=== PATIENT | female | born 1980 | race Caucasian/White ===

== ENCOUNTER 2023-04-16 08:14 | Emergency (ER) | payer MEDICAID ==
[~2023-04-16] VITALS: Ht 157.5 cm; Wt 65.9 kg
[2023-04-16] MEDS ORDERED: ALPRAZolam 0.5mg tablet PO ONE (10:40)
[2023-04-16] MEDS ORDERED: propranolol 10mg tablet PO ONE (10:40)
[2023-04-16 12:08] VITALS: BP 135/76
== END 2023-04-16 12:09 | disposition home or self-care (01) ==
LOC: ER 08:15
DX: F41.9 Anxiety disorder, unspecified (principal); I10 Essential (primary) hypertension; Z51.81 Encounter for therapeutic drug level monitoring; F32.A Depression, unspecified; Z72.89 Other problems related to lifestyle; F41.0 Panic disorder [episodic paroxysmal anxiety]
CPT/HCPCS: 99283

== ENCOUNTER 2024-05-12 06:43 | Emergency (ER) | payer MEDICAID ==
[~2024-05-12] VITALS: Ht 157.5 cm; Wt 68.3 kg
[2024-05-12 06:53] VITALS: BP 135/100; PULSE 86; O2SAT 99
[2024-05-12] MEDS ORDERED: ketorolac tromethamine 15mg/ml inj. IM ONE (07:35)
[2024-05-12] MEDS: ketorolac trometh. 30mg/ml inj. IM ONE (07:44)
[2024-05-12] MEDS ORDERED: LIDO700A32 TD (08:50)
[2024-05-12 09:06] LABS: BILIRUBIN,URINE NEGATIVE (Neg); CLARITY,URINE CLEAR (Clear); COLOR,URINE YELLOW (Yellow); GLUCOSE, URINE NEGATIVE (Neg); KETONES,URINE NEGATIVE (Neg); LEUKOCYTE ESTERASE ,URINE NEGATIVE (Neg); NITRITES, URINE NEGATIVE (Neg); OCCULT BLOOD,URINE NEGATIVE (Neg); PROTEIN,URINE NEGATIVE (Neg); UROBILINOGEN,URINE 0.2 E.U/dL (0.2-1.0)
[2024-05-12 09:07] LABS: UA COLLECTION TYPE CLN CATCH MIDSTREAM
[2024-05-12] MEDS ORDERED: LIDO700A32 TOP (09:18)
[2024-05-12] MEDS ORDERED: IBUP-1986 PO (09:31)
[2024-05-12] MEDS: LIDOcaine 5% patch TP SCH (09:36)
[2024-05-12 09:41] VITALS: RESP 16
== END 2024-05-12 09:53 | disposition home or self-care (01) ==
LOC: ER 06:44
DX: R07.81 Pleurodynia (principal); F41.9 Anxiety disorder, unspecified; Z79.1 Long term (current) use of non-steroidal anti-inflammatories (NSAID); Z79.899 Other long term (current) drug therapy
CPT/HCPCS: 71045; 81003; 96372; 99284; J1885

== ENCOUNTER 2025-02-16 08:41 | Inpatient (IN) | payer MEDICAID, OTHER ==
[~2025-02-16] VITALS: Ht 157.5 cm; Wt 70.0 kg
[~2025-02-16 08:41] MED LIST: IBUP-1986 PO; LIDO700A32 TOP
[2025-02-16 09:06] LABS: BASOPHILS # (AUTO) 0.1 X10'3 (0-0.2); BASOPHILS % (AUTO) 0.6 % (0-1); EOSINOPHILS % (AUTO) 0 % (0-6); HEMOGLOBIN 13.7 g/dl (12.0-16.0); LYMPHOCYTES # (AUTO) 0.9 X10'3 (1.1-4.8); LYMPHOCYTES % (AUTO) 5.9 % (21-51); MEAN CORPUSCULAR HEMOGLOBIN 32.1 PG (27.0-31.0); MEAN CORPUSCULAR HGB CONC 33.5 g/dL (33.0-36.5); MEAN CORPUSCULAR VOLUME 95.8 FL (78-98); MEAN PLATELET VOLUME 8.8 FL (7.4-10.4); MONOCYTES # (AUTO) 0.8 X10'3 (0-0.9); MONOCYTES % (AUTO) 5.5 % (2-12); NEUTROPHILS # (AUTO) 12.8 X10'3 (1.8-7.7); PLATELET COUNT 486 X10'3 (140-440); RED BLOOD COUNT 4.28 X10'6 (4.20-5.60); RED CELL DISTRIBUTION WIDTH 13.6 % (11.5-14.5); WHITE BLOOD COUNT 14.5 X10'3 (4.5-11.0)
[2025-02-16] MEDS: ondansetron/PF 4mg/2ml inj IV ONE (09:12)
[2025-02-16] MEDS: morphine 4 MG/ML inj SYRINge IV ONE (09:12)
[2025-02-16 09:22] LABS: ALANINE AMINOTRANSFERASE 107 U/L (12-78); ALBUMIN 4.2 G/DL (3.4-5.0); ALBUMIN/GLOBULIN RATIO 1.2 (1.1-1.5); ALKALINE PHOSPHATASE 77 IU/L (46-116); ANION GAP 31 (8-16); ASPARTATE AMINO TRANSFERASE 52 U/L (10-37); BILIRUBIN,TOTAL 1.3 MG/DL (0.1-1.0); BLOOD UREA NITROGEN 15 MG/DL (7-18); BUN/CREATININE RATIO 11.5 (10.0-20.0); CALCIUM 8.6 MG/DL (8.5-10.1); CHLORIDE 97 MMOL/L (99-107); GLUCOSE 133 MG/DL (70-104); LIPASE 93 U/L (16-77); POTASSIUM 4.3 MMOL/L (3.5-5.1); SODIUM 139 MMOL/L (135-145); TOTAL PROTEIN 7.6 G/DL (6.4-8.2); eCRCL 45 ML/MIN; eGFR 45 ML/MIN
[2025-02-16 09:23] LABS: TOTAL CARBON DIOXIDE 10.8 MMOL/L (24-32)
--- NOTE | 2025-02-16 10:02 | ELECTROCARDIOGRAPH REPORT ---
[facility] Test Date: 2025-02-16 Test Time: 08:46:05 Pat Name: BHAVIN SUERO Department: EMERGENCY ROOM Room: ORTHO [facility] Gender: F Accounting Professional: NABOR : 1980 Requested By: ROSA BAEZA Order Number: [id number] Reading MD: Dr. Wan Cordova Measurements Intervals Ava Rate: 116 P: 84 AZ: 139 QRS: 85 QRSD: 94 T: 27 QT: 323 QTc: 449 Interpretive Statements Sinus tachycardia Ventricular premature complex Aberrant complex Right atrial enlargement Electronically Signed On 02-17-2025 9:27:[address] Wan Cordova Please click the below link to view image of tracing.
--- NOTE | 2025-02-16 10:31 | Physician Documentation ---
History of Present Illness General Chief Complaint: Abdominal Pain w/vomiting Stated Complaint: ABD PAIN/WEAKNESS Time Seen by MD: 09:47 Mode of Arrival: EMS History of Present Illness Initial Comments The patient is a 44-year-old female with a history of binge drinking who was drinking heavily three days ago and two days ago. Beginning yesterday she developed epigastric pain, nausea and vomiting. She has not been blood. No diarrhea. Medication Reconciliation Allergies: Coded Allergies: No Known Allergies (Unverified , 04/16/23) Scheduled Ibuprofen (Ibuprofen), 1 TAB PO Q8H Lidocaine (Lidoderm), 1 PATCH TOP BID Past Medical History Past Medical History: Anxiety, Depression Past Surgical History: no surgical history Alcohol Use: Heavy Drug Use: none Lives In: Home Review of Systems ROS Constitutional: Denies chills, fatigue, fever, weight gain or weight loss. HEENT: Denies hearing loss, sinus pressure or visual changes. Respiratory: Denies cough, shortness of breath or wheezing. Cardiovascular: Denies chest pain, pain while walking (claudication), edema or palpitations. Gastrointestinal: Epigastric pain, nausea Genitourinary: Denies painful urination (dysuria), excessive amount of urine (polyuria) or urinary frequency. Metabolic/Endocrine: Denies cold intolerance, heat intolerance, excessive thirst (polydipsia) or excessive hunger (polyphagia). Neurological: Denies dizziness, extremity numbness, extremity weakness, headaches, seizures or tremors. Psychiatric: Denies anxiety or depression. Integumentary: Denies breast discharge, breast lump, hives, mole change(s), rash or skin lesion. Musculoskeletal: Denies back pain, joint pain, joint swelling or neck pain. Hematologic: Denies easily bleeding, easily bruises, lymphedema or issues with blood clots. Immunologic: Denies food allergies or seasonal allergies. Physical Exam Physical Exam Vital Signs: Temperature: 98.0, Heart Rate: 121, Respiratory Rate: 14, BP: 123/87, Pulse Oximetry: 100, Weight: 70.000 Oxygen Flow Rate: 0 Physical Exam Physical Exam Vitals and nursing note reviewed. Constitutional: General: Patient is awake, alert, oriented x 4 in no acute distress and well appearing. Speech is clear and lucid. Appearance: Normal appearance. Patient is not ill-appearing, toxic-appearing or diaphoretic. HENT: Head: Normocephalic and atraumatic. Mouth/Throat: Mouth: Mucous membranes are moist. Pharynx: Oropharynx is clear. Eyes: General: No scleral icterus. Extraocular Movements: Extraocular movements intact. Pupils: Pupils are equal, round, and reactive to light. Cardiovascular: Rate and Rhythm: Normal rate and regular rhythm. Heart sounds: No murmur heard. Pulmonary: Effort: No respiratory distress. Breath sounds: No wheezing, rhonchi or rales. Abdominal: General: There is no distension. Palpations: There is no fluid wave, hepatomegaly or mass. Tenderness: Epigastric tenderness without rebound or guarding. Musculoskeletal: General: No swelling or deformity. Skin: Coloration: Skin is not jaundiced. Findings: No erythema or rash. Neurological: Mental Status: Patient is alert. Progress Results/Orders Results/Orders Orders - ROSA BAEZA MD ABG (02/16/25 10:30) Dextrose 5%-Normal Saline (Dextrose 5%-N (02/16/25 11:20) Page Hospitalist (02/16/25 11:22) Completed Orders - ROSA BAEZA MD Hcg, Ur Ql (02/16/25 08:50) Cbc/Diff (02/16/25 08:50) BMP (02/16/25 08:50) Lipase (02/16/25 08:50) CMP (02/16/25 08:50) Electrocardiogram (02/16/25 08:50) Pantoprazole 40mg Iv (Protonix 40mg Iv) (02/16/25 10:23) Ringers Solution, Lacted (Lactated Ringe (02/16/25 10:25) Cbc/Diff (02/16/25 10:25) Bmp Er (02/16/25 10:25) MG (02/16/25 10:25) Ethanol (02/16/25 10:28) Ua W/Microscopic, Cult If Ind (02/16/25 10:45) Acetone, Serum (02/16/25 11:11) Thiamine Inj. (Thiamine Inj.) (02/16/25 11:15) Medications Received in ER Medications (Trade) Dose Ordered Sig/Fatou Route PRN Reason Start Time Stop Time Status Last Admin Dose Admin (Zofran 4mg/2ml vial) 4 mg ONCE ONCE IV 02/16/25 09:05 02/16/25 09:06 DC 02/16/25 09:12 4 MG (morphine inj.) 4 mg ONCE ONCE IV 02/16/25 09:05 02/16/25 09:06 DC 02/16/25 09:12 4 MG (Protonix 40mg IV) 40 mg ONCE STAT IV 02/16/25 10:23 02/16/25 10:27 DC 02/16/25 10:39 40 MG Lactated Ringer's 1,000 ml @ 1,000 mls/hr ONCE ONCE IV 02/16/25 10:25 02/16/25 11:24 DC 02/16/25 10:39 1,000 MLS/HR (thiamine inj.) 500 mg ONCE ONCE IV 02/16/25 11:15 02/16/25 11:25 DC 02/16/25 12:04 500 MG Dextrose/Sodium Chloride 1,000 ml @ 100 mls/hr Q10H IV 02/16/25 11:20 02/16/25 12:05 100 MLS/HR Vital Signs 02/16/25 02/16/25 02/16/25 02/16/25 08:43 08:52 09:12 09:17 Temp 98.0 98.0 Pulse 117 122 Resp 21 18 20 B/P (MAP) 139/108 128/102 (111) Pulse Ox 100 100 O2 Flow Rate 0 0 02/16/25 02/16/25 02/16/25 10:15 10:45 11:45 Temp 98.0 Pulse 121 109 109 Resp 14 21 18 B/P (MAP) 123/87 (99) 127/89 (102) 129/79 (96) Pulse Ox 100 99 95 O2 Flow Rate 0 0 0 Laboratory Tests Test 02/16/25 08:50 02/16/25 10:35 02/16/25 10:45 02/16/25 11:20 White Blood Count 14.5 H 16.9 H Red Blood Count 4.28 4.52 Hemoglobin 13.7 14.1 Hematocrit 41.0 42.9 Mean Corpuscular Volume 95.8 94.9 Mean Corpuscular Hemoglobin 32.1 H 31.3 H Mean Corpuscular Hemoglobin Concent 33.5 32.9 L Red Cell Distribution Width 13.6 13.5 Platelet Count 486 H 532 H Mean Platelet Volume 8.8 8.7 Neutrophils (%) (Auto) 88.0 H 87.0 H Lymphocytes (%) (Auto) 5.9 L 5.8 L Monocytes (%) (Auto) 5.5 6.6 Eosinophils (%) (Auto) 0 0 Basophils (%) (Auto) 0.6 0.6 Neutrophils # (Auto) 12.8 H 14.7 H Lymphocytes # (Auto) 0.9 L 1.0 L Monocytes # (Auto) 0.8 1.1 H Eosinophils # (Auto) 0.0 0.0 Basophils # (Auto) 0.1 0.1 CBC Comment Sodium Level 139 139 Potassium Level 4.3 4.7 Chloride Level 97 L 99 Carbon Dioxide Level 10.8 *L 14.1 *L Anion Gap 31 H 26 H Blood Urea Nitrogen 15 16 Creatinine 1.30 H 1.14 H Estimated GFR/1.73 m2 45 52 BUN/Creatinine Ratio 11.5 14.0 Glucose Level 133 H 104 Calcium Level 8.6 8.4 L Total Bilirubin 1.3 H Aspartate Amino Transf (AST/SGOT) 52 H Alanine Aminotransferase (ALT/SGPT) 107 H Alkaline Phosphatase 77 Total Protein 7.6 Albumin 4.2 4.3 Globulin 3.4 Albumin/Globulin Ratio 1.2 Lipase 93 H Chemistry Comments Magnesium Level 2.0 Ethyl Alcohol Level < 10 Urine Specimen Description Cln catch midstream Urine Color Yellow Urine Clarity Slightly cloudy Urine pH 6.0 Urine Specific [place] >=1.030 Urine Protein 100 H Urine Glucose (UA) Negative Urine Ketones >=80 Urine Occult Blood Trace-intact Urine Nitrite Negative Urine Bilirubin Small Urine Urobilinogen 0.2 Urine Leukocyte Esterase Negative Urine RBC None seen Urine WBC 10-20 H Urine Squamous Epithelial Cells Many Urine Renal Cells Few Urine Bacteria 1+ Urine Cellular Casts 10-20 Urine Hyaline Casts 5-10 Urine Fine Granular Casts 3-5 Urine Coarse Granular Casts 10-30 Urine Mucus Few Urine Culture Indicated Rejected for culture Volume Urine Centrifuged 10 ml Urine HCG, Qualitative Negative Urine Comment Blood Gas Specimen Type Arterial Blood Gas Puncture Site Rb O2 Saturation 96.7 Arterial Blood pH (Temp corrected) 7.295 L Arterial Blood pCO2 (Temp correct) 24.7 L Arterial Blood pO2 (Temp corrected) 100.1 Arterial Blood PO2/FiO2 Ratio 4.77 Arterial Blood HCO3 11.7 L Arterial Blood Base Excess -12.9 L Arterial Blood Oxyhemoglobin 96.3 Arterial Blood Carboxyhemoglobin 0.3 L Arterial Blood Methemoglobin 0.1 Arterial Blood Deoxyhemoglobin 3.3 Todd Test Positive Blood Gas Hemoglobin 12.9 Blood Gas Temperature 37.0 Blood Gas Modality Ra FiO2 21.0 Test 02/16/25 11:28 Acetone Level Moderate Medical Decision Making Findings This 44-year-old female with a history of binge drinking was drinking heavily two and three days ago and subsequently experienced epigastric discomfort, nausea and vomiting. She also feels somewhat anxious. She has an increased anion gap and ketonuria along with acidosis (venous pH 7.295). This patient has alcohol ketoacidosis. I have volume repleted her and I am going to start D5 NS. She will require admission. Departure Disposition: ADMITTED INPATIENT Admitted to Inpatient Unit: to hospitalist Admission Level of Care: Med/Surg with Tele Impression: Primary Impression: Alcoholic ketoacidosis Condition: Stable Referrals: NO PRIMARY CARE PROVIDER (PCP) Signature Scribe Signature: . Attestation: . ROSA BAEZA MD Feb 16, 2025 10:30
[2025-02-16] MEDS: pantoprazole 40 MG vial IV STA (10:39)
[2025-02-16] MEDS: ringers solution, lacted 1,000 ML IV ONE (10:39)
[2025-02-16 10:45] LABS: BASOPHILS # (AUTO) 0.1 X10'3 (0-0.2); BASOPHILS % (AUTO) 0.6 % (0-1); EOSINOPHILS % (AUTO) 0 % (0-6); HEMATOCRIT 42.9 % (35.0-45.0); HEMOGLOBIN 14.1 g/dl (12.0-16.0); LYMPHOCYTES % (AUTO) 5.8 % (21-51); MEAN CORPUSCULAR HEMOGLOBIN 31.3 PG (27.0-31.0); MEAN CORPUSCULAR HGB CONC 32.9 g/dL (33.0-36.5); MEAN CORPUSCULAR VOLUME 94.9 FL (78-98); MEAN PLATELET VOLUME 8.7 FL (7.4-10.4); MONOCYTES # (AUTO) 1.1 X10'3 (0-0.9); MONOCYTES % (AUTO) 6.6 % (2-12); NEUTROPHILS # (AUTO) 14.7 X10'3 (1.8-7.7); PLATELET COUNT 532 X10'3 (140-440); RED BLOOD COUNT 4.52 X10'6 (4.20-5.60); RED CELL DISTRIBUTION WIDTH 13.5 % (11.5-14.5); WHITE BLOOD COUNT 16.9 X10'3 (4.5-11.0)
[2025-02-16 10:57] LABS: ALBUMIN 4.3 G/DL (3.4-5.0); ANION GAP 26 (8-16); BLOOD UREA NITROGEN 16 MG/DL (7-18); CALCIUM 8.4 MG/DL (8.5-10.1); CHLORIDE 99 MMOL/L (99-107); CREATININE 1.14 MG/DL (0.40-0.90); ETHANOL < 10 MG/DL (<10); GLUCOSE 104 MG/DL (70-104); POTASSIUM 4.7 MMOL/L (3.5-5.1); SODIUM 139 MMOL/L (135-145); eCRCL 51 ML/MIN; eGFR 52 ML/MIN
[2025-02-16 10:58] LABS: TOTAL CARBON DIOXIDE 14.1 MMOL/L (24-32)
[2025-02-16 11:03] LABS: BILIRUBIN,URINE SMALL (Neg); CLARITY,URINE SLIGHTLY CLOUDY (Clear); COLOR,URINE YELLOW (Yellow); GLUCOSE, URINE NEGATIVE (Neg); KETONES,URINE >=80 mg/dl (Neg); LEUKOCYTE ESTERASE ,URINE NEGATIVE (Neg); NITRITES, URINE NEGATIVE (Neg); OCCULT BLOOD,URINE TRACE-INTACT (Neg); PROTEIN,URINE 100 mg/dl (Neg); UROBILINOGEN,URINE 0.2 E.U/dL (0.2-1.0)
[2025-02-16 11:04] LABS: UA COLLECTION TYPE CLN CATCH MIDSTREAM; URINE HCG NEGATIVE (NEG)
[2025-02-16 11:22] LABS: BACTERIA,URINE 1+ /HPF (Neg); RBC,URINE NONE SEEN /HPF (0-2)
[2025-02-16 11:23] LABS: SQUAMOUS EPITHELIAL CELL,UR MANY /LPF (FEW)
[2025-02-16 11:24] LABS: ABG BASE EXCESS -12.9 mmol/L (-2.0-3.0); ABG HCO3 11.7 mmol/L (21.0-28.0); ABG OXYGEN SATURATION 96.7 % (94.0-98.0); ABG PCO2 (T) 24.7 mmHg (32.0-45.0); ABG PH (T) 7.295 (7.350-7.450); ABG PO2 (T) 100.1 mmHg (83.0-108.0); ALLEN'S TEST POSITIVE; FCOHb 0.3 % (0.5-1.5); FHHb 3.3 % (0.0-5.0); FMetHb 0.1 % (0.0-1.5); FO2Hb 96.3 % (94.0-98.0); MODE RA; TOTAL HEMOGLOBIN 12.9 G/dl (12.0-16.0)
[2025-02-16 11:25] LABS: MUCUS STRANDS FEW /LPF (Neg)
[2025-02-16 11:26] LABS: RENAL CELLS, URINE FEW /HPF
[2025-02-16] MEDS: thiamine 100mg/ml 2ml inj. IV ONE (12:04)
[2025-02-16] MEDS: dextrose 5%-normal saline 1,000 ML IV SCH (12:05)
[2025-02-16 12:26] LABS: ACETONE MODERATE (NEGATIVE)
[2025-02-16] MEDS ORDERED: LORazepam 2 mg/ml vial IV PRN (13:45)
[2025-02-16] MEDS ORDERED: haloperidol 5mg tablet PO PRN (13:45)
[2025-02-16] MEDS ORDERED: haloperidol lactate 5mg/ml inj IM PRN (13:45)
[2025-02-16] MEDS ORDERED: potassium Cl 20 mEq SR tablet PO PRN (13:50)
[2025-02-16] MEDS ORDERED: magnesium Cl slow-release 64mg tablet PO PRN (13:50)
[2025-02-16] MEDS ORDERED: acetaminophen 325mg tablet PO PRN ×2 (13:50)
[2025-02-16] MEDS ORDERED: morphine 2 MG/ML inj. syringe IV PRN (13:50)
[2025-02-16] MEDS ORDERED: magnesium sulf-water 2g/50mL 50 ML IV PRN (13:50)
[2025-02-16] MEDS ORDERED: magnesium sulf-water 4G/100mL 100 ML IV PRN (13:50)
[2025-02-16] MEDS ORDERED: ondansetron/PF 4mg/2ml inj IV PRN (13:50)
[2025-02-16] MEDS ORDERED: potassium Cl 40MEQ/1/2NS 520ml 520 ML IV PRN (13:50)
[2025-02-16] MEDS: atenolol 50mg tablet PO SCH (14:49)
[2025-02-16] MEDS: sodium bicarbonate (8.4%) inj. 50 MEQ in dextrose 5%-water 1,000 ML IV SCH (14:50)
--- NOTE | 2025-02-16 15:33 | HISTORY AND PHYSICAL ---
History & Physical Providers to CC ~ History of Present Illness Reason for Admit\Complaint: Vomiting and not feeling good since two days History of Present Illness The patient is a 44-year-old female with a history of binge drinking who was drinking heavily three days ago and two days ago. Patient was seen today in ER in presence of her mother. Beginning yesterday she developed epigastric pain, nausea and vomiting. Patient denied any abdominal pain to me in visit. Further workup done in ER which was abnormal WBC 16.9, bicarbonate 14.1 signs of acute kidney failure elevated lipase and liver enzymes. Patient off and on get cramps over her legs Patient denied any other concerns. No other associated symptoms Allergies: Coded Allergies: No Known Allergies (Unverified , 04/16/23) Home Medications Home Medications Active Ibuprofen 800 Mg Tablet 1 Tab PO Q8H 10 Days Lidoderm (Lidocaine) 5 % Adh..patch 1 Patch TOP BID 5 Days may wear up to 12 hours Past Medical History Past Medical History Anxiety and depression Past Surgical History Surgical History Comment no surgical history Past Social History Social History Comment Patient lives by herself , some online business. She admitted that she has binge drinking habit denied use of any tobacco use cannabis off and on Exam Vitals: Vital Signs Date Time Temp Pulse Resp B/P (MAP) Pulse Ox O2 Delivery O2 Flow Rate FiO2 02/16/25 14:49 114 02/16/25 13:45 18 124/82 (96) 96 0 02/16/25 10:45 98.0 General: General-patient not in any acute distress, alert awake ill-appearing, age- appropriate HEENT-atraumatic normocephalic, neck supple without elevated JVD, no thyromegaly or carotid bruit. No lymphadenopathy bilaterally. Eyes-no icterus or pallor seen in eyes Chest-clear to auscultation bilaterally, breathing nonlabored no tachypnea, no wheezing, no crepitation, no crackles. Heart-S1-S2 normal, regular heart rate no murmur Abdomen bowel sounds positive on auscultation, soft nondistended nontender no guarding, no rigidity Skin no active skin rash Neurology-grossly intact, nonfocal alert awake , mildly lethargic during conversation Extremity- no pedal edema able to move all 4 extremities Psychiatry - patient is not confused or agitated cooperated during physical examination Diagnostic Data Last Recorded Lab Results: 02/16/25 1035 02/16/25 1035 Advance Care Planning Advanced Care plannin - 30 Minutes Additional Plan The patient is a 44-year-old female with a history of binge drinking who was drinking heavily three days ago Further workup done in ER which was abnormal WBC 16.9, bicarbonate 14.1 signs of acute kidney failure elevated lipase and liver enzymes. Patient is admitted for alcohol intoxication, alcoholic ketoacidosis, acute kidney injury, transaminitis, possible acute pancreatitis. Detailed counseling done regarding risk and consequences of alcohol abuse in presence of her mother. We will do the physical therapy evaluation. Alcohol withdrawal protocol ordered. We will continue to monitor patient's vitals and labs. Manager Performance consult order for alcohol abuse. As per patient she does not have any medical issues. We will continue to followed home renal function and liver enzymes. Code status discussed with the patient patient wishes to stay full code. Patient's current condition is guarded . I will continue to follow patient in a.m. Date of Service: Feb 16, 2025 Billing Provider: UNA HUNTER MD Common Visit Codes: [id number] INP/OBS CARE (HIGH) Secondary Visit Codes: [id number] CARE PLAN 30 MINUTES UNA HUNTER MD Feb 16, 2025 15:33
[2025-02-16 16:00] VITALS: BP 135/86; PULSE 88; RESP 14; TEMP 98.4; O2SAT 98
[2025-02-16 17:00] VITALS: RESP 14
[2025-02-16 17:46] VITALS: RESP 14
[2025-02-16 18:00] VITALS: BP 102/68; PULSE 88; RESP 14; TEMP 98.7; O2SAT 98
[2025-02-16] MEDS ORDERED: NO HOME MEDS (18:51)
[2025-02-16 19:13] VITALS: RESP 16; O2SAT 98
[2025-02-16] MEDS: LORazepam 1 MG tablet PO PRN (20:24)
[2025-02-16] MEDS: thiamine 100mg/ml 2ml inj. IV SCH (20:25)
[2025-02-16] MEDS: heparin, porcine 5000 units/ml vial SQ SCH (20:25)
[2025-02-16 22:00] VITALS: BP 91/58; PULSE 73; RESP 16; TEMP 98.7; O2SAT 100
[2025-02-17 06:00] VITALS: BP 87/60; PULSE 77; RESP 16; TEMP 97.9; O2SAT 99
[2025-02-17] MEDS: folic acid 1mg/0.2ml inj IV SCH (07:01)
[2025-02-17] MEDS: multivitamins, therapeutics tablet PO SCH (07:04)
[2025-02-17 07:29] LABS: ALANINE AMINOTRANSFERASE 75 U/L (12-78); ALBUMIN 3.3 G/DL (3.4-5.0); ALBUMIN/GLOBULIN RATIO 1.2 (1.1-1.5); ALKALINE PHOSPHATASE 61 IU/L (46-116); ANION GAP 5 (8-16); ASPARTATE AMINO TRANSFERASE 41 U/L (10-37); BILIRUBIN,TOTAL 1.6 MG/DL (0.1-1.0); BLOOD UREA NITROGEN 8 MG/DL (7-18); BUN/CREATININE RATIO 9.8 (10.0-20.0); CALCIUM 8.4 MG/DL (8.5-10.1); CHLORIDE 102 MMOL/L (99-107); CREATININE 0.82 MG/DL (0.40-0.90); GLUCOSE 121 MG/DL (70-104); LIPASE 82 U/L (16-77); MAGNESIUM 1.7 MG/DL (1.5-2.4); PHOSPHORUS 1.5 MG/DL (2.3-4.5); POTASSIUM 3.3 MMOL/L (3.5-5.1); SODIUM 137 MMOL/L (135-145); TOTAL CARBON DIOXIDE 30.3 MMOL/L (24-32); TOTAL PROTEIN 6.1 G/DL (6.4-8.2); eCRCL 71 ML/MIN; eGFR 76 ML/MIN
[2025-02-17] MEDS: potassium Cl 20 mEq SR tablet PO PRN (07:52)
[2025-02-17 08:00] VITALS: RESP 16
[2025-02-17] MEDS: nicotine 14mg patch - 24hr TD SCH (08:00)
[2025-02-17] MEDS: normal saline 1000ml 1,000 ML IV SCH (09:52)
[2025-02-17 10:00] VITALS: BP 101/68; PULSE 80; RESP 18; TEMP 98.9; O2SAT 95
[2025-02-17 14:16] LABS: BASOPHILS % (AUTO) 0.4 % (0-1); EOSINOPHILS # (AUTO) 0.1 X10'3 (0-0.9); EOSINOPHILS % (AUTO) 0.9 % (0-6); HEMATOCRIT 33.6 % (35.0-45.0); HEMOGLOBIN 11.5 g/dl (12.0-16.0); LYMPHOCYTES # (AUTO) 1.9 X10'3 (1.1-4.8); LYMPHOCYTES % (AUTO) 23.1 % (21-51); MEAN CORPUSCULAR HEMOGLOBIN 32.4 PG (27.0-31.0); MEAN CORPUSCULAR HGB CONC 34.1 g/dL (33.0-36.5); MEAN CORPUSCULAR VOLUME 94.8 FL (78-98); MEAN PLATELET VOLUME 8.6 FL (7.4-10.4); MONOCYTES # (AUTO) 0.7 X10'3 (0-0.9); MONOCYTES % (AUTO) 8.5 % (2-12); NEUTROPHILS # (AUTO) 5.4 X10'3 (1.8-7.7); NEUTROPHILS % (AUTO) 67.1 % (42-75); PLATELET COUNT 375 X10'3 (140-440); RED BLOOD COUNT 3.55 X10'6 (4.20-5.60); RED CELL DISTRIBUTION WIDTH 13.3 % (11.5-14.5); WHITE BLOOD COUNT 8.1 X10'3 (4.5-11.0)
[2025-02-17 18:00] VITALS: BP 103/72; PULSE 91; RESP 17; TEMP 98.3; O2SAT 96
--- NOTE | 2025-02-17 18:57 | PROGRESS NOTE ---
Daily Progress Note Providers to CC ~ Antibiotic Timeout Antibiotic Ordered?: No Subjective Patient was seen in presence of her mother. Patient is feeling better today Objective Vital Signs Date Time Temp Pulse Resp B/P (MAP) Pulse Ox O2 Delivery O2 Flow Rate FiO2 02/17/25 10:00 98.9 80 18 101/68 (79) 95 Room Air 02/16/25 13:45 0 Result Diagram: 02/17/25 1352 02/17/25 0648 General-patient not in any acute distress, alert awake ill-appearing, age- appropriate HEENT-atraumatic normocephalic, neck supple without elevated JVD, no thyromegaly or carotid bruit. No lymphadenopathy bilaterally. Eyes-no icterus or pallor seen in eyes Chest-clear to auscultation bilaterally, breathing nonlabored no tachypnea, no wheezing, no crepitation, no crackles. Heart-S1-S2 normal, regular heart rate no murmur Abdomen bowel sounds positive on auscultation, soft nondistended nontender no guarding, no rigidity Skin no active skin rash Neurology-grossly intact, nonfocal alert awake , mildly lethargic during conversation Extremity- no pedal edema able to move all 4 extremities Psychiatry - patient is not confused or agitated cooperated during physical examination Problem\Assessment\Plan The patient is a 44-year-old female with a history of binge drinking who was drinking heavily three days ago . Patient is admitted for alcohol intoxication, alcoholic ketoacidosis, acute kidney injury, transaminitis, possible acute pancreatitis. # alcohol intoxication- Detailed counseling done regarding risk and consequences of alcohol abuse in presence of her mother. We will do the physical therapy evaluation. Alcohol withdrawal protocol ordered. # alcoholic ketoacidosis resolved. Bicarbonate drip today and started on normal saline # possible acute pancreatitis- continue on IV fluids. # acute kidney injury, transaminitis- improved , continue on IV fluids. # hypokalemia we will do the replacement of potassium as per protocol # Code status discussed with the patient patient wishes to stay full code. Patient's current condition is guarded . I will continue to follow patient in a.m. Date of Service: Feb 17, 2025 Billing Provider: UNA HUNTER MD Common Visit Codes: [id number] INP/OBS CARE(HIGH) UNA HUNTER MD Feb 17, 2025 18:57
[2025-02-17] MEDS: HYDROcodone/acetaminophen 5mg/325mg tablet PO PRN (19:54)
[2025-02-17 22:00] VITALS: BP 96/62; PULSE 95; RESP 18; TEMP 97.4; O2SAT 96
[2025-02-18 06:03] LABS: BASOPHILS % (AUTO) 0.6 % (0-1); EOSINOPHILS # (AUTO) 0.1 X10'3 (0-0.9); EOSINOPHILS % (AUTO) 1.9 % (0-6); HEMATOCRIT 31.7 % (35.0-45.0); HEMOGLOBIN 10.7 g/dl (12.0-16.0); LYMPHOCYTES # (AUTO) 3.1 X10'3 (1.1-4.8); LYMPHOCYTES % (AUTO) 47.6 % (21-51); MEAN CORPUSCULAR HEMOGLOBIN 32.3 PG (27.0-31.0); MEAN CORPUSCULAR HGB CONC 33.9 g/dL (33.0-36.5); MEAN CORPUSCULAR VOLUME 95.5 FL (78-98); MEAN PLATELET VOLUME 8.7 FL (7.4-10.4); MONOCYTES # (AUTO) 0.5 X10'3 (0-0.9); MONOCYTES % (AUTO) 7.7 % (2-12); NEUTROPHILS # (AUTO) 2.8 X10'3 (1.8-7.7); NEUTROPHILS % (AUTO) 42.2 % (42-75); PLATELET COUNT 313 X10'3 (140-440); RED BLOOD COUNT 3.32 X10'6 (4.20-5.60); RED CELL DISTRIBUTION WIDTH 12.9 % (11.5-14.5); WHITE BLOOD COUNT 6.6 X10'3 (4.5-11.0)
[2025-02-18 06:16] LABS: ALANINE AMINOTRANSFERASE 94 U/L (12-78); ALBUMIN 2.7 G/DL (3.4-5.0); ALBUMIN/GLOBULIN RATIO 1.1 (1.1-1.5); ALKALINE PHOSPHATASE 50 IU/L (46-116); ANION GAP 5 (8-16); ASPARTATE AMINO TRANSFERASE 61 U/L (10-37); BILIRUBIN,TOTAL 0.4 MG/DL (0.1-1.0); BLOOD UREA NITROGEN 7 MG/DL (7-18); BUN/CREATININE RATIO 11.7 (10.0-20.0); CALCIUM 8.1 MG/DL (8.5-10.1); CHLORIDE 107 MMOL/L (99-107); GLUCOSE 96 MG/DL (70-104); MAGNESIUM 1.5 MG/DL (1.5-2.4); PHOSPHORUS 1.5 MG/DL (2.3-4.5); POTASSIUM 3.5 MMOL/L (3.5-5.1); SODIUM 141 MMOL/L (135-145); TOTAL CARBON DIOXIDE 29.5 MMOL/L (24-32); TOTAL PROTEIN 5.1 G/DL (6.4-8.2); eCRCL 97 ML/MIN; eGFR > 90 ML/MIN
[2025-02-18 06:44] VITALS: BP 107/67; PULSE 84; RESP 16; TEMP 97.7; O2SAT 98
[2025-02-18 08:00] VITALS: RESP 20; O2SAT 97
[2025-02-18 09:06] LABS: LIPASE 77 U/L (16-77)
[2025-02-18 10:00] VITALS: BP 101/67; PULSE 80; RESP 20; TEMP 98.2; O2SAT 97
[2025-02-18] MEDS ORDERED: NALT50TA5 PO (10:20)
[2025-02-18] MEDS ORDERED: PANT40TA54 PO (10:20)
[2025-02-18] MEDS ORDERED: thiamine tablet PO (10:20)
[2025-02-18] MEDS ORDERED: FOLI1TAB27 PO (10:20)
[2025-02-18] MEDS ORDERED: MULT-25 PO (10:20)
--- NOTE | 2025-02-18 18:07 | DISCHARGE SUMMARY ---
Discharge Summary Providers to CC ~ Discharge Summary Admission Diagnosis: alcoholic ketoacodosis , alcohol abuse Hospital Course DATE OF ADMISSION: February 16 2025 DATE OF DISCHARGE:February 18 2025 CBC testing done on February 18, 2025 WBC 6.6 hemoglobin 10.7 hematocrit 31.7. Serum chemistry done on February 18, 2025 sodium 141 potassium 3.5 creatinine 0.60 GFR greater than 90 total bilirubin 0.4 AST 61 ALT 94 lipase 74 Discharge Diagnosis\Comment: # alcohol intoxication # alcoholic ketoacidosis resolved # possible acute pancreatitis # acute kidney injury-resolved # transaminitis secondary to alcohol abuse # hypokalemia , resolved Operations\Procedures: none Consultants: none Complications: none Condition on DC: Stable New Medications: Naltrexone Hcl (Naltrexone Hcl) 50 Mg Tablet 1 TAB PO DAILY for 30 Days, #30 TAB 0 Refills Pantoprazole Sodium (Pantoprazole Sodium) 40 Mg Tablet.dr 40 MG PO BKF for 30 Days, #30 TAB.SR Folic Acid* (Folic Acid*) Y Tab 1 MG PO DAILY for 30 Days, #30 TAB Multivitamin with Folic Acid (Thera Tablet) 400 Mcg Tablet 1 EACH PO Q24H for 30 Days, #30 TAB [thiamine tablet] () 100 MG TABLET 100 MG PO DAILY for 30 Days, #30 Discontinued Medications: Home Med List (No Home Medications) Each Discharge Summary: The patient is a 44-year-old female with a history of binge drinking who was drinking heavily three days ago . Patient is admitted for alcohol intoxication, alcoholic ketoacidosis, acute kidney injury, transaminitis, possible acute pancreatitis. # alcohol intoxication- Detailed counseling done regarding risk and consequences of alcohol abuse in presence of her mother. We will do the physical therapy evaluation. Alcohol withdrawal protocol ordered. # alcoholic ketoacidosis resolved. Bicarbonate drip today and started on normal saline # possible acute pancreatitis- continued on IV fluids. Lipase was normal today # acute kidney injury, transaminitis- improved , continue on IV fluids. # hypokalemia , resolved we did replacement of potassium as per protocol Patient's clinical condition improved. She has been afebrile and getting discharged home in stable condition. Her mother and father was present at bedside when I evaluated her. Patient is seen and examined on the day of discharge discharge instructions provided to the patient. All questions and concerns answered to the best of my professional medical knowledge. Patient is able to ambulate and cleared by Physical therapy team. Patient needs follow-up with primary care physician in one week and repeat CMP with PCP Detailed counseling done regarding risk and consequences of alcohol abuse in presence of her mother. Strongly recommended to join alcohol anonymous program for alcohol cessation. General-patient not in any acute distress, alert awake , chronic ill-appearing, age-appropriate HEENT-atraumatic normocephalic, neck supple without elevated JVD, no thyromegaly or carotid bruit. No lymphadenopathy bilaterally. Eyes-no icterus or pallor seen in eyes Chest-clear to auscultation bilaterally, breathing nonlabored no tachypnea, no wheezing, no crepitation, no crackles. Heart-S1-S2 normal, regular heart rate no murmur Abdomen bowel sounds positive on auscultation, soft nondistended nontender no guarding, no rigidity Skin no active skin rash Neurology-grossly intact, nonfocal alert awake , Extremity- no pedal edema able to move all 4 extremities Psychiatry - patient is not confused or agitated cooperated during physical e xamination *Problems/Diagnosis: (1) Alcoholic ketoacidosis Status: Acute Total Time Spent on D/C: > 30 Minutes Date of Service: Feb 18, 2025 Billing Provider: UNA HUNTER MD Common Visit Codes: 66828-MRY/OBS DISCH DAY >30min UNA HUNTER MD Feb 18, 2025 18:07
[2025-02-20] MEDS ORDERED: thiamine 100mg tablet PO SCH (08:00)
[2025-02-21] MEDS ORDERED: folic acid 1mg tablet PO SCH (08:00)
== END 2025-02-18 14:30 | disposition home or self-care (01) | DRG 282 ==
LOC: ER 08:42 → ED HOLD 13:29 → ORTHO 4S 16:58
PROVIDERS: ADMIT Internal Medicine; ATTEND Internal Medicine
DX: K85.90 Acute pancreatitis without necrosis or infection, unspecified (principal); N17.9 Acute kidney failure, unspecified; E87.29 Other acidosis; F41.9 Anxiety disorder, unspecified; F32.A Depression, unspecified; F10.129 Alcohol abuse with intoxication, unspecified; R74.01 Elevation of levels of liver transaminase levels; E87.6 Hypokalemia
CPT/HCPCS: 36415; 36600; 80048; 80053; 80320; 81001; 81025; 82009; 82803; 83690; 83735; 84100; 85018; 85025; 87081; 93005; 96361; 96374; 96375; 97110; 97116; 97161; 99285; G0378; J1644; J2270; J2405; J2470; J3411; J3490; J7030; J7042; J7070; J7120

== ENCOUNTER 2025-10-17 08:44 | Emergency (ER) | payer MEDICAID ==
[~2025-10-17] VITALS: Ht 157.5 cm; Wt 75.0 kg
[~2025-10-17 08:44] MED LIST changes: +FOLI1TAB27 PO; -IBUP-1986 PO; -LIDO700A32 TOP; +MULT-25 PO; +NALT50TA5 PO; +PANT40TA54 PO; +thiamine tablet PO
[2025-10-17] MEDS ORDERED: SULF1TAB49 PO (11:25)
--- NOTE | 2025-10-17 11:26 | Physician Documentation ---
History of Present Illness ~ Chief Complaint: Abscess Stated Complaint: BOIL UNDER LEFT BUTTOCK Time Seen by MD: 10:50 OK to notify your PCP?: Yes Source: patient Mode of Arrival: POV Exam Limitations: no limitations HPI This is a 45-year-old female who comes in complaining of the tender firm area that is she believes it is a boil in the left upper inner thigh, lower buttock area. She has had this for the past few days. She states that is she has been applying dressings in his it has been draining purulence. She denies fever or chills. She denies some significant pain Tetanus Within 5 Years: No Medication Reconciliation Allergies: Coded Allergies: No Known Allergies (Unverified , 04/16/23) Scheduled Folic Acid* (Folic Acid*), 1 MG PO DAILY Multivitamin with Folic Acid (Thera Tablet), 1 EACH PO Q24H Naltrexone Hcl (Naltrexone Hcl), 1 TAB PO DAILY Pantoprazole Sodium (Pantoprazole Sodium), 40 MG PO BKF Sulfamethoxazole/Trimethoprim (Bactrim Ds Tablet), 1 TAB PO Q12H [thiamine tablet], 100 MG PO DAILY Past Medical History Past Medical History: Anxiety, Depression Past Surgical History: no surgical history Alcohol Use: Heavy Drug Use: none Lives In: Home Physical Exam Vital Signs: Temperature: 97.6, Source: Temporal, Heart Rate: 92, Respiratory Rate: 17, BP: 139/90, Pulse Oximetry: 99, Weight: 75.000 Pulse Oximetry Reflects: adequate oxygenation General Appearance: alert, WD/WN, no apparent distress Skin To inspection of the left upper inner thigh the patient has a obvious cutaneous abscess. There is a small pustule head. With the areas tender to palpation with fluctuance. Mild surrounding erythema and induration. Procedures I & D Procedure : Site: Left upper inner thigh Anesthesia: Lidocaine Blade Size: 11 Prep/Supplies: betadine prep Incision: mass incised, pus drained Tolerated Procedure Well?: yes, no complications Progress Results/Orders Results/Orders Completed Orders - SAMI HARRELL Lidocaine 1% 30ml Vial (Xylocaine 1% Via (10/17/25 11:20) Vital Signs 10/17/25 08:57 Temp 97.6 Pulse 92 Resp 17 B/P (MAP) 139/90 Pulse Ox 99 Medical Decision Making Additional information obtaine: N/A Findings With the patient has a an obvious cutaneous abscess of the left upper inner thigh. Performing physician with drainage in the packed with [id number] iodoform gauze packing. I covered with a nonadherent gauze dressing. I inspe cted with the patient to return in two days for packing removal. I will prescribe Bactrim DS recheck can twice a day and you can take ibuprofen or Tylenol for pain. Follow up with the primary care physician for recheck in two days. Return to the ER for any worsening or concerning symptoms Differential Dx:Considerations: Include: Abscess, Bacteremia, Cellulitis, Erysipelas, Felon, Gas gangrene, Hidrademitis suppurativa, Impetigo, Lymphangitis, Osteromyelitis, Paronychia, Septicemia, Other Additional Comment Continuous abscess. Staph infection. Cellulitis Departure Disposition: HOME / SELF CARE / HOMELESS Impression: Primary Impression: Abscess Condition: Stable Discharge Instructions: Abscess, Care After Additional Instructions: Keep the current dressing clean dry and do not remove it for two days. Go to the [facility] or return in two days for packing removal. Ibuprofen for pain. Return sooner for any worsening or concerning symptoms. Referrals: NO PRIMARY CARE PROVIDER (PCP) Prescriptions Sulfamethoxazole/Trimethoprim (Bactrim Ds Tablet) 800 Mg-160 Mg Tablet 1 TAB PO Q12H for 10 Days, #20 TAB Prov: SAMI HARRELL 10/17/25 Signature Scribe Signature: No scribe Attestation: The note accurately reflects work and decisions made by me.Sami PADILLA 10/17/25 11:53 SAMI HARRELL Oct 17, 2025 11:26
[2025-10-17] MEDS: LIDOcaine 1% 30ml preserv. free vial IJ ONE (12:04)
[2025-10-17 12:15] VITALS: BP 133/89; PULSE 90; RESP 18; TEMP 98.1; O2SAT 99
== END 2025-10-17 12:16 | disposition home or self-care (01) ==
LOC: ER 08:46
DX: L02.416 Cutaneous abscess of left lower limb (principal); F41.9 Anxiety disorder, unspecified; F32.A Depression, unspecified; F10.90 Alcohol use, unspecified, uncomplicated; Z79.899 Other long term (current) drug therapy; Y90.9 Presence of alcohol in blood, level not specified
CPT/HCPCS: 10060; 99283; A6266